=== PATIENT | female | born 1980 ===

== ENCOUNTER 2020-02-06 11:12 | Outpatient (CLI) | payer OTHER ==
--- NOTE | 2020-02-06 11:46 | CT ---
CT BRAIN WITHOUT CONTRAST: HISTORY: Headache FINDINGS: No evidence of acute infarct, hemorrhage, midline shift or abnormal extra-axial fluid collections is seen. The ventricular size is appropriate and the basilar cisterns are patent. The bony calvarium is intact. The visualized paranasal sinuses and mastoid air cells are well aerated. IMPRESSION: No CT evidence of acute intracranial process.
== END 2020-02-06 11:13 | disposition home or self-care (01) ==
LOC: BICCT 11:12
PROVIDERS: ATTEND Family Medicine
DX: R51 Headache (principal)
CPT/HCPCS: 70450